=== PATIENT | male | born 1995 | race African-American/Black ===

== ENCOUNTER 2017-03-18 15:47 | Emergency (ER) | payer OTHER ==
[2017-03-18 17:26] LABS: ACETAMINOPHEN <10 ug/mL; ALBUMIN SERUM 4.3 g/dL (3.5-5.0); ALCOHOL BLOOD <5 mg/dL (0); ALKALINE PHOSPHATASE 74 U/L (32-92); ALT (SGPT) 19 U/L (10-40); AST (SGOT) 25 U/L (10-42); BILIRUBIN, DIRECT 0.1 mg/dL (0.0-0.2); BILIRUBIN,INDIRECT 0.4 mg/dL (0.0-0.9); BILIRUBIN,TOTAL 0.5 mg/dL (0.2-2.0); BLOOD UREA NITROGEN 11 mg/dL (9-23); BUN/CREATININE RATIO 9.16; CALCIUM SERUM 8.8 mg/dL (8.4-10.2); CARBON DIOXIDE 22 mmol/L (22-31); CHLORIDE 103 mmol/L (100-111); CREATININE SERUM 1.2 mg/dL (0.6-1.4); GLOM FILT RATE Estimated 84.2 mL/min (>60); GLUCOSE FASTING 86 mg/dL (70-110); POTASSIUM 3.5 mmol/L (3.5-5.1); PROTEIN TOTAL SERUM 7.5 g/dL (6.0-8.3); SALICYLATE <4.0 mg/dL; SODIUM 141 mmol/L (135-145)
== END 2017-03-18 18:18 | disposition home or self-care (01) ==
LOC: CED 15:47
PROVIDERS: Emergency Medicine
DX: T50.991A Poisoning by other drugs, medicaments and biological substances, accidental (unintentional), initial encounter (principal)
CPT/HCPCS: 36415; 80048; 80076; 96361; 96374; 99284; G0480; J2310

== ENCOUNTER 2017-03-18 18:53 | Emergency (ER) | payer OTHER | END 2017-03-18 21:49 | disposition home or self-care (01) | LOC: CED 18:53 | DX: T50.901A Poisoning by unspecified drugs, medicaments and biological substances, accidental (unintentional), initial encounter (principal) | CPT/HCPCS: 99282 ==

== ENCOUNTER 2017-04-05 20:01 | Emergency (ER) | payer OTHER | END 2017-04-05 21:23 | disposition home or self-care (01) | LOC: CED 20:01 | DX: F19.10 Other psychoactive substance abuse, uncomplicated (principal) | CPT/HCPCS: 99282 ==

== ENCOUNTER 2017-05-21 07:32 | Emergency (ER) | payer OTHER ==
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
== END 2017-05-21 08:46 | disposition home or self-care (01) ==
LOC: CED 07:32
DX: M25.512 Pain in left shoulder (principal); M79.662 Pain in left lower leg; F17.200 Nicotine dependence, unspecified, uncomplicated
CPT/HCPCS: 73030; 73590; 99283